=== PATIENT | male | born 1985 | race Caucasian/White ===

== ENCOUNTER 2017-06-13 13:11 | Emergency (ER) | payer BC ==
[2017-06-13 13:23] VITALS: RESP 18; TEMP 97.5
[2017-06-13] MEDS ORDERED: KETOROLAC TROMETHAMINE 30 MG/ML SOL IM ONE (13:41)
[2017-06-13] MEDS ORDERED: KETOROLAC TROMETHAMINE 30 MG/ML SOL ONE (13:43)
[2017-06-13 14:17] VITALS: BP 146/80; PULSE 68; O2SAT 98
[2017-06-13] MEDS ORDERED: CYCLOBENZAPRINE 10 MG TAB PO ONE (14:21)
[2017-06-13] MEDS ORDERED: CYCLOBENZAPRINE 10 MG TAB ONE (14:22)
== END 2017-06-13 14:45 | disposition home or self-care (01) ==
LOC: ED 13:11
DX: M54.5 Low back pain (principal)
CPT/HCPCS: 72120; 96372; 99283; J1885; A9270-GY

== ENCOUNTER 2017-11-15 10:30 | Day surgery (SDC) | payer BC ==
[2017-11-15] MEDS ORDERED: BUPIVACAINE HCL 0.25% MPF 30 ML SOL INFIL ONE (11:13)
[2017-11-15] MEDS ORDERED: DEXAMETHASONE SOD PHOS PF 10 MG/ML SOL IJ ONE (11:13)
[2017-11-15] MEDS ORDERED: EPHEDRINE SULFATE 50 MG/ML SOL ONE (11:17)
[2017-11-15] MEDS ORDERED: GLYCOPYRROLATE 0.2 MG/ML SOL ONE (11:17)
[2017-11-15 11:53] VITALS: BP 117/67; PULSE 79; RESP 20; TEMP 97.4; O2SAT 95
== END 2017-11-15 12:20 | disposition home or self-care (01) ==
LOC: SURG 10:30
PROVIDERS: ATTEND Nurse Anesthetist, Certified Registered
DX: M51.27 Other intervertebral disc displacement, lumbosacral region (principal)
CPT/HCPCS: J7643; J1100; J3490